=== PATIENT | male | born 1985 | race Caucasian/White ===

== ENCOUNTER 2022-12-20 10:26 | Emergency (ER) | payer MEDICAID, OTHER ==
[~2022-12-20] VITALS: Ht 180.3 cm; Wt 68.2 kg
[~2022-12-20 10:26] MED LIST: PHEN100C23 PO; SERT-158 PO; TRAZ300T2 PO
[2022-12-20 10:35] VITALS: TEMP 98.5
[2022-12-20] MEDS ORDERED: LORazepam 2 MG/ML VIAL IM ONE (10:45)
[2022-12-20] MEDS ORDERED: NALOXONE HCL 1 MG/ML 2 ML SYRINGE IM ONE (13:15)
[2022-12-20 13:39] VITALS: BP 118/77; PULSE 98; RESP 14
== END 2022-12-20 14:13 | disposition home or self-care (01) ==
LOC: EMS 10:41
DX: F15.10 Other stimulant abuse, uncomplicated (principal); F41.9 Anxiety disorder, unspecified; F32.A Depression, unspecified; F17.210 Nicotine dependence, cigarettes, uncomplicated; F12.90 Cannabis use, unspecified, uncomplicated; F19.90 Other psychoactive substance use, unspecified, uncomplicated
CPT/HCPCS: 99284; 96372; J2060; J2310